=== PATIENT | female | born 1990 | race Hispanic/Latino ===

== ENCOUNTER 2019-07-23 14:00 | Emergency (ER) | payer MEDICAID, OTHER ==
[2019-07-23] MEDS ORDERED: IBUPROFEN 600 MG TABLET ONE (14:29)
[2019-07-23] MEDS ORDERED: DIPHENHYDRAMINE HCL 25 MG CAPSULE ONE (14:29)
== END 2019-07-23 14:47 | disposition home or self-care (01) ==
LOC: EDH 14:00
DX: T63.461A Toxic effect of venom of wasps, accidental (unintentional), initial encounter (principal); L25.8 Unspecified contact dermatitis due to other agents; Z90.49 Acquired absence of other specified parts of digestive tract; Z88.8 Allergy status to other drugs, medicaments and biological substances; Y92.89 Other specified places as the place of occurrence of the external cause
CPT/HCPCS: 99283; Q0163

== ENCOUNTER 2022-07-02 19:20 | Emergency (ER) | payer OTHER ==
[~2022-07-02] VITALS: Ht 175.3 cm; Wt 103.0 kg
[2022-07-02 19:31] VITALS: BP 129/65
[2022-07-02] MEDS ORDERED: HYDROCODONE/ACETAMINOPHEN 5/325 MG TAB PO ONE (20:00)
[2022-07-02] MEDS ORDERED: NAPR-1180 PO (20:14)
== END 2022-07-02 20:22 | disposition home or self-care (01) ==
LOC: EDH 19:20
DX: S93.401A Sprain of unspecified ligament of right ankle, initial encounter (principal); S93.601A Unspecified sprain of right foot, initial encounter; E66.9 Obesity, unspecified; Z79.1 Long term (current) use of non-steroidal anti-inflammatories (NSAID); Z68.33 Body mass index [BMI] 33.0-33.9, adult; Z90.49 Acquired absence of other specified parts of digestive tract; X58.XXXA Exposure to other specified factors, initial encounter; Y93.89 Activity, other specified; Y92.89 Other specified places as the place of occurrence of the external cause; Y99.8 Other external cause status
CPT/HCPCS: 73610; 73630

== ENCOUNTER 2023-05-31 11:08 | Emergency (ER) | payer BC, OTHER ==
[~2023-05-31] VITALS: Ht 175.3 cm; Wt 110.2 kg
[~2023-05-31 11:08] MED LIST: NAPR-1180 PO
[2023-05-31 11:09] VITALS: BP 141/84
[2023-05-31 11:28] LABS: BASOPHILS % (AUTO) 0.6 % (0.0-5.0); EOSINOPHILS % (AUTO) 2.1 % (0.0-8.0); HEMATOCRIT 35.8 % (36-48); LYMPHOCYTES % (AUTO) 38.7 % (21.0-51.0); MEAN CORPUSCULAR HEMOGLOBIN 29.6 pg (27.0-33.0); MEAN CORPUSCULAR HGB CONC 33.2 g/dL (32.0-36.0); MEAN CORPUSCULAR VOLUME 89.1 fL (79-99); MONOCYTES % (AUTO) 6.5 % (3.0-13.0); NEUTROPHILS % (AUTO) 51.7 % (40.0-77.0); PLATELET COUNT (AUTO) 357 K/uL (130-400); RED BLOOD CELL COUNT(AUTO) 4.02 MIL/uL (4.00-5.50); RED CELL DISTRIBUTION WIDTH 12.6 % (11.0-15.5); WHITE BLOOD COUNT (AUTO) 8.1 K/uL (4.8-10.8)
[2023-05-31 11:40] LABS: CREATININE 0.8 mg/dL (0.5-1.5); POTASSIUM 3.4 mmol/L (3.5-5.1)
[2023-05-31 11:43] LABS: ALBUMIN 3.5 g/dL (3.5-5.0); TOTAL PROTEIN, SERUM 7.3 g/dL (6.0-8.3)
[2023-05-31] MEDS ORDERED: LIDOCAINE HCL 2% VISCOUS 15 ML UDCUP PO ONE ×2 (12:30→13:00)
[2023-05-31] MEDS ORDERED: DICYCLOMINE HCL 10 MG/5 ML ML PO ONE (12:30)
[2023-05-31] MEDS ORDERED: FAMOTIDINE 20MG TAB PO ONE (12:30)
[2023-05-31] MEDS ORDERED: MAG/ALUM/SIMETH 30 ML UDCUP PO ONE (12:30)
[2023-05-31] MEDS ORDERED: IBUP-2070 PO (13:22)
[2023-05-31] MEDS ORDERED: KETOROLAC 60 MG VIAL (30MG/ML) IM ONE (13:30)
[2023-05-31] MEDS ORDERED: DEXAMETHASONE SOD PHOSPHATE 4 MG/ML 1ML VIAL IM ONE (13:30)
== END 2023-05-31 13:44 | disposition home or self-care (01) ==
LOC: EDH 11:08
DX: R07.89 Other chest pain (principal); E66.9 Obesity, unspecified; Z68.35 Body mass index [BMI] 35.0-35.9, adult; Z90.49 Acquired absence of other specified parts of digestive tract; Z98.890 Other specified postprocedural states; Z79.899 Other long term (current) drug therapy; Z88.8 Allergy status to other drugs, medicaments and biological substances
CPT/HCPCS: 99284; 71045; 84484; 80053; 84703; 85025; 36415; 96372 ×2; 93005; J1100; J1885

== ENCOUNTER 2023-10-25 08:04 | Emergency (ER) | payer BC ==
[~2023-10-25] VITALS: Ht 175.3 cm; Wt 108.4 kg
[~2023-10-25 08:04] MED LIST changes: +IBUP-2070 PO
[2023-10-25] MEDS: ONDANSETRON ODT 4MG TAB SL ONE ×2 (08:33→08:44)
[2023-10-25 08:38] LABS: BASOPHILS # (AUTO) 0.06 K/uL (0.00-0.20); BASOPHILS % (AUTO) 0.7 % (0.0-5.0); EOSINOPHILS # (AUTO) 0.17 K/uL (0.00-0.70); EOSINOPHILS % (AUTO) 1.9 % (0.0-8.0); HEMATOCRIT 40.2 % (36-48); IMMATURE GRANULOCYTE ABSOLUTE 0.03 K/uL (0-1); LYMPHOCYTES # (AUTO) 2.5 K/uL (1.0-4.8); LYMPHOCYTES % (AUTO) 27.8 % (21.0-51.0); MEAN CORPUSCULAR HEMOGLOBIN 29.7 pg (27.0-33.0); MEAN CORPUSCULAR HGB CONC 32.8 g/dL (32.0-36.0); MEAN CORPUSCULAR VOLUME 90.3 fL (79-99); MONOCYTES # (AUTO) 0.5 K/uL (0.1-1.0); MONOCYTES % (AUTO) 5.5 % (3.0-13.0); NEUTROPHILS # (AUTO) 5.7 K/uL (1.8-7.7); NEUTROPHILS % (AUTO) 63.8 % (40.0-77.0); PLATELET COUNT (AUTO) 378 K/uL (130-400); RED BLOOD CELL COUNT(AUTO) 4.45 MIL/uL (4.00-5.50); RED CELL DISTRIBUTION WIDTH 12.6 % (11.0-15.5)
[2023-10-25] MEDS ORDERED: LACTATED RINGERS 1000ML IV ONE (08:45)
[2023-10-25 08:48] LABS: CREATININE 0.7 mg/dL (0.5-1.5); POTASSIUM 3.9 mmol/L (3.5-5.1)
[2023-10-25 08:52] LABS: ALBUMIN 3.8 g/dL (3.5-5.0); BILIRUBIN,TOTAL 0.2 mg/dL (0.2-1.0); TOTAL PROTEIN, SERUM 8.2 g/dL (6.0-8.3)
[2023-10-25] MEDS ORDERED: ONDANSETRON 4MG INJ IVP ONE (09:00)
[2023-10-25 09:06] LABS: APPEARANCE,URINE CLOUDY (CLEAR); BILIRUBIN,URINE NEGATIVE (NEGATIVE); COLOR,URINE YELLOW (YELLOW); GLUCOSE, URINE (UA) NEGATIVE (NEGATIVE); KETONES,URINE NEGATIVE (NEGATIVE); LEUKOCYTE ESTERASE ,URINE NEGATIVE Leu/uL (NEGATIVE); NITRATE,URINE NEGATIVE (NEGATIVE); OCCULT BLOOD,URINE SMALL (NEGATIVE); PH,URINE 5.5 (5.0-8.0); PROTEIN,URINE 30 mg/dL (NEGATIVE); UROBILINOGEN,URINE 0.2 mg/dL (0.2-1.0)
[2023-10-25 09:12] LABS: ADD UA MICROSCOPIC YES; HCG,QUALITATIVE URINE NEGATIVE (NEGATIVE)
[2023-10-25 09:13] LABS: INFLUENZA TYPE A Negative For Type A (NEGATIVE); INFLUENZA TYPE B Negative For Type B (NEGATIVE)
[2023-10-25 09:20] LABS: SARS-CoV-2, RNA, NAAT NEGATIVE SARS CoV-2 (NEGATIVE)
[2023-10-25 09:37] LABS: BACTERIA,URINE RARE /HPF (None Seen); MUCUS,URINE RARE LPF (None Seen); SQUAMOUS EPITHELIAL CELL,UR MANY /HPF (0-2)
[2023-10-25] MEDS ORDERED: IOHEXOL 350 MG/ML 100ML INFUS..BTL IV ONE (10:28)
[2023-10-25] MEDS ORDERED: MECLIZINE HCL 25 MG TABLET PO ONE (14:00)
[2023-10-25] MEDS ORDERED: MECL-302 PO (15:29)
[2023-10-25 15:42] VITALS: BP 133/78; PULSE 78; RESP 18; O2SAT 98
== END 2023-10-25 15:48 | disposition home or self-care (01) ==
LOC: EDH 08:04
DX: R42 Dizziness and giddiness (principal); R11.2 Nausea with vomiting, unspecified; E66.9 Obesity, unspecified; Z90.49 Acquired absence of other specified parts of digestive tract; Z68.35 Body mass index [BMI] 35.0-35.9, adult; Z20.822 Contact with and (suspected) exposure to COVID-19
CPT/HCPCS: 99285; 70450; 70551; 96374; 96361; 87635; 80053; 83690; 85025; 87804 ×2; 81001; 81025; 36415; 74177; C9803; J7120; J2405; Q9967

== ENCOUNTER 2024-03-01 20:03 | Emergency (ER) | payer BC ==
[~2024-03-01] VITALS: Ht 175.3 cm; Wt 108.4 kg
[~2024-03-01 20:03] MED LIST changes: +MECL-160 PO
[2024-03-01] MEDS: PREDNISONE 20 MG TABLET PO ONE (22:55)
[2024-03-01 23:05] LABS: RAPID GROUP A STREP negative (NEGATIVE)
[2024-03-01 23:10] VITALS: BP 137/88; PULSE 73; RESP 14; O2SAT 98
[2024-03-01 23:15] LABS: COVID19 (SARS ANTIGEN RAPID) PRESUMPTIVE NEGATIVE (NEGATIVE); INFLUENZA TYPE A Negative For Type A (NEGATIVE); INFLUENZA TYPE B Negative For Type B (NEGATIVE)
[2024-03-01] MEDS: ACETAMINOPHEN 325 MG TAB PO ONE (23:16)
[2024-03-01] MEDS ORDERED: PRED20TA3 PO (23:29)
== END 2024-03-01 23:38 | disposition home or self-care (01) ==
LOC: EDH 20:03
DX: T78.49XA Other allergy, initial encounter (principal); J06.9 Acute upper respiratory infection, unspecified; E66.9 Obesity, unspecified; Z20.822 Contact with and (suspected) exposure to COVID-19; Z90.49 Acquired absence of other specified parts of digestive tract; Z79.899 Other long term (current) drug therapy; Z98.890 Other specified postprocedural states; Z88.8 Allergy status to other drugs, medicaments and biological substances; X58.XXXA Exposure to other specified factors, initial encounter
CPT/HCPCS: 87426; 87804; 87880